=== PATIENT | female | born 1940 | race American Indian/Alaskan Native ===

== ENCOUNTER 2019-04-09 10:00 | Outpatient (CLI) | payer MEDICARE ==
--- NOTE | 2019-04-12 09:21 | Mammography Report ---
DIGITAL SCREENING MAMMOGRAM WITH CAD, 04/09/2019 INDICATION: Routine screening mammography. TECHNIQUE: Digital bilateral 2D mammography was obtained in the craniocaudal and mediolateral obliq ue projections. This examination was interpreted with the benefit of Computer-Aided Detection analysi s. COMPARISON: None available. The patient was uncertain as to where she had a previous mammogram. FINDINGS: Breast Density: The breasts are heterogeneously dense, which may obscure small masses. Several groups of right lower outer pleomorphic calcifications and a group of left outer pleomorphic calcifications requiring further imaging. No mass or architectural distortion. IMPRESSION: Bilateral calcifications requiring additional imaging. Recommend recall for bilateral spo t magnification views Follow up recommendation: Special View: Mag Category 0: Incomplete. Needs additional imaging evaluation and/or prior mammograms for comparison. A "normal" or negative report should not discourage follow up or biopsy of a clinically significant f inding. A written summary of these findings will be mailed to the patient. The patient will be entered into a mammography reporting system which will generate a reminder letter for the patient's next appointmen t at the appropriate interval. The [employer] recommends yearly mammograms starting at age 40 and continuing as l rosa as a woman is in good health. Breast MRI is recommended for women with an approximate 20-25% or greater lifetime risk of breast cancer, including women with a strong family history of breast or ova [place] cancer or who have been treated for Hodgkin's disease. Signer Name: Blayne Lora MD Signed: 04/12/2019 9:17 AM Workstation Name: [id number]
--- NOTE | 2019-04-12 09:32 | Mammography Report ---
BONE DEXA CLINICAL: Postmenopausal. TECHNIQUE: 2 site bone DEXA performed on an Hologic scanner. FINDINGS: The average BMD of the lumbar spine L1-L4 is 1.059g/cm squared with a T score of +0.1 and a Z score o f +2.7. The average total BMD of the left hip is 0.829 g/cm squared with a T score of -0.9and a Z score of +1 .0. IMPRESSION: 1. WHO classification: Normal with average fracture risk based on spine measurements. 2. WHO classification Normal with average fracture risk based on left hip measurements. RECOMMENDATION: Clinical correlation and routine screening. Definitions: BMD equal bone mineral density T score = BMD related to peak bone mass of young adult ([place] expressed an standard deviation) Z score = age-matched BMD expressed in SD World health organization (WHO) diagnostic criteria Normal T score greater than equal to 1 standard deviation Osteopenia T score between -1 and -2.4 standard deviation Osteoporosis T score -2.5 standard deviation or below. Note: BMD is not the only risk factor for fracture; also consider factors such as the patient's age, risk of falling, previous osteoporotic fracture, family history of osteoporotic fractures, current sm oker and low body weight. Z scores are not calculated if greater than 80 years of age. Signer Name: Blayne Lora MD Signed: 04/12/2019 9:27 AM Workstation Name: [id number]
== END 2019-04-09 10:01 | disposition home or self-care (01) ==
LOC: SPVWC 10:00
PROVIDERS: ATTEND Family Medicine
DX: Z12.31 Encounter for screening mammogram for malignant neoplasm of breast (principal); Z12.39 Encounter for other screening for malignant neoplasm of breast; Z78.0 Asymptomatic menopausal state
CPT/HCPCS: 77067; 77080

== ENCOUNTER 2019-05-26 10:00 | Outpatient (CLI) | payer MEDICARE ==
--- NOTE | 2019-05-27 08:29 | Mammography Report ---
DIGITAL DIAGNOSTIC MAMMOGRAM WITH CAD, 05/26/2019 INDICATION: Recalled to evaluate bilateral calcifications. ABNORMAL MAMMOGRAM TECHNIQUE: Digital bilateral mammographic imaging was performed. Magnification views were obtained. This examination was interpreted with the benefit of Computer-aided Detection analysis. COMPARISON: 04/09/2019 screening mammogram. FINDINGS: Breast Density: The breasts are heterogeneously dense, which may obscure small masses. Bilateral magnification views were performed and demonstrate several bilateral clumped radiopacities with morphology reminiscent of a fingerprint. They are located bilateral and lateral in each breast w ith a relatively symmetric pattern. I suspect that they are a powder artifact. The patient did state that she uses baby powder on the underside of her breasts daily. IMPRESSION: Probably benign outer artifact in both breasts. Recommend 6 month follow-up bilateral lianna mogram. The patient was also instructed to not use powder in the interim. Follow up recommendation: Short term follow up in 6 months. BI-RADS Category 3: Probably Benign. Followup in 6 months. A "normal" or negative report should not discourage follow up or biopsy of a clinically significant f inding. A written summary of these findings will be mailed to the patient. The patient will be entered into a mammography reporting system which will generate a reminder letter for the patient's next appointmen t at the appropriate interval. According to the [employer], yearly mammograms are recommended starting at age 40 and continuing as long as a woman is in good health. Breast MRI is recommended for women with an susu roximately 20-25% or greater lifetime risk of breast cancer, including women with a strong family his tory of breast or ovarian cancer and women who have been treated for Hodgkin's disease. Signer Name: Blayne Lora MD Signed: 05/27/2019 8:24 AM Workstation Name: [id number]
== END 2019-05-26 10:01 | disposition home or self-care (01) ==
LOC: SPVWC 10:00
PROVIDERS: ATTEND Family Medicine
DX: R92.8 Other abnormal and inconclusive findings on diagnostic imaging of breast (principal)
CPT/HCPCS: 77066